=== PATIENT | male | born 1955 | race Caucasian/White ===

== ENCOUNTER 2021-04-24 14:31 | Inpatient (IN) ==
[2021-04-24] MEDS ORDERED: Ondansetron ODT 4 MG TAB.RAPDIS SL PRN (18:06)
[2021-04-24] MEDS ORDERED: Melatonin 3 MG TABLET PO PRN (18:06)
[2021-04-24] MEDS ORDERED: Naloxone 0.4 MG/ML INJ IVP PRN (18:06)
[2021-04-24] MEDS ORDERED: Mag Hydrox/Al Hydrox/Simeth 30 ML UDC PO PRN (18:06)
[2021-04-24] MEDS ORDERED: Furosemide 40 MG/4 ML VIAL IVP ONE (18:13)
[2021-04-24] MEDS ORDERED: D5% in Water 1,000 ML IVC PRN (18:27)
[2021-04-24] MEDS ORDERED: *HR* Dextrose 50 % in Water (Vial) 50 ML VIAL IVP PRN (18:27)
[2021-04-24] MEDS ORDERED: Dextrose Gel 15 GM/37.5 ML TUBE PO PRN ×2 (18:27)
[2021-04-24] MEDS: Acetaminophen 325 MG TABLET PO PRN (19:49)
[2021-04-25 01:56] LABS: Basophils # 0.1 K/mcL (0.0-0.2); Basophils % 0.3 %; Eosinophils # 0.1 K/mcL (0.0-0.6); Eosinophils % 0.3 %; Hemoglobin 13.9 g/dL (12.9-16.9); Immature Granulocytes % 0.5 % (0-4); Lymphocytes # 1.3 K/mcL (0.6-4.6); Lymphocytes % 7.5 %; Mean Corpuscular HGB Conc 33.1 g/dL (31.6-35.5); Mean Corpuscular Volume 90.7 fL (83.0-100.0); Mean Platelet Volume 9.9 fL (9.4-12.4); Monocytes # 1.3 K/mcL (0.0-1.3); Monocytes % 7.5 %; Neutrophils # 14.6 K/mcL (1.6-8.9); Platelet Count 194 K/mcL (140-400); Red Blood Count 4.63 M/mcL (4.19-5.50); Red Cell Distribution Width 12.4 % (11.5-14.5); Segmented Neutrophils % 83.9 %; White Blood Count 17.4 K/mcL (4.3-11.1)
[2021-04-25 02:05] LABS: INR 1.2; Prothrombin Time 13.3 Seconds (9.4-12.1)
[2021-04-25 02:19] LABS: BUN/Creatinine Ratio 20 (6-26); Blood Urea Nitrogen 18 mg/dL (8-23); Calcium 9.1 mg/dL (8.6-10.3); Carbon Dioxide 29 mEq/L (23-29); Chloride 93 mEq/L (98-107); Glucose 171 mg/dL (70-105); Osmolality,Calculated 290 (280-300); Potassium 3.4 mEq/L (3.5-5.1); Sodium 137 mEq/L (136-145); eGFR For African Americans > 60 (> 60); eGFR For Non-African Americans > 60 (> 60)
[2021-04-25] MEDS: Insulin LISPRO 300 UNITS/3 ML VIAL SUBQ SCH ×5 (03:12→21:12)
[2021-04-25] MEDS: Acetaminophen 325 MG TABLET PO PRN (03:14)
[2021-04-25] MEDS: *HR* Heparin 5,000 UNIT/ML VIAL SQ SCH ×2 (05:58→16:32)
[2021-04-25] MEDS: Aspirin 81 MG TAB.CHEW PO SCH (08:28)
[2021-04-25] MEDS ORDERED: *HR* FentaNYL (PF) 100 MCG/2 ML VIAL ONE (11:00)
[2021-04-25] MEDS ORDERED: 0.9 % Sodium Chloride 2,000 ML ONE (11:00)
[2021-04-25] MEDS ORDERED: Nitroglycerin 1,000 MCG/5 ML VIAL IV ONE (11:00)
[2021-04-25] MEDS ORDERED: *HR* Heparin 10,000 UNIT/10 ML VIAL ONE (11:00)
[2021-04-25] MEDS ORDERED: ISOVUE-370 200 ML INFUS..BTL ONE (11:00)
[2021-04-25] MEDS ORDERED: Heparin 1,000 UNITS/500 mL 500 ML ONE (11:00)
[2021-04-25] MEDS ORDERED: *HR* Midazolam HCl 2 MG/2 ML VIAL ONE ×2 (11:00→11:59)
[2021-04-25] MEDS ORDERED: *HR* Bivalirudin 250 MG VIAL IVC ONE (12:11)
[2021-04-25] MEDS: Spironolactone 12.5 MG TABLET PO SCH (13:46)
[2021-04-25 18:47] LABS: Adenovirus Not Detected (Not Detect); Bordetella Pertussis Not Detected (Not Detect); Chlamydophila pneumoniae Not Detected (Not Detect); Coronavirus 229E Not Detected (Not Detect); Coronavirus HKU1 Not Detected (Not Detect); Coronavirus NL63 Not Detected (Not Detect); Coronavirus OC43 Not Detected (Not Detect); Human Metapneumovirus Not Detected (Not Detect); Human Rhinovirus/Enterovirus Not Detected (Not Detect); Influenza A Subtype 2009 H1 Not Detected (Not Detect); Influenza B Not Detected (Not Detect); Mycoplasma pneumoniae Not Detected (Not Detect); Parainfluenza Virus 1 Not Detected (Not Detect); Parainfluenza Virus 2 Not Detected (Not Detect); Parainfluenza Virus 3 Not Detected (Not Detect); Parainfluenza Virus 4 Not Detected (Not Detect); Respiratory Syncytial Virus Not Detected (Not Detect); SARS-CoV-2 Not Detected (Not Detect)
[2021-04-25] MEDS: *HR* OxyCODONE Immed Rel 5 MG TABLET PO PRN (21:07)
[2021-04-26 01:29] LABS: Basophils # 0.1 K/mcL (0.0-0.2); Basophils % 0.3 %; Eosinophils % 0.2 %; Hematocrit 40.3 % (37.5-50.1); Hemoglobin 13.5 g/dL (12.9-16.9); Immature Granulocytes % 0.9 % (0-4); Lymphocytes # 1.5 K/mcL (0.6-4.6); Lymphocytes % 8.2 %; Mean Corpuscular HGB Conc 33.5 g/dL (31.6-35.5); Mean Corpuscular Hemoglobin 30.4 pg (28.0-33.3); Mean Corpuscular Volume 90.8 fL (83.0-100.0); Mean Platelet Volume 9.4 fL (9.4-12.4); Monocytes # 1.3 K/mcL (0.0-1.3); Monocytes % 7.2 %; Neutrophils # 15.3 K/mcL (1.6-8.9); Platelet Count 191 K/mcL (140-400); Red Blood Count 4.44 M/mcL (4.19-5.50); Red Cell Distribution Width 12.1 % (11.5-14.5); Segmented Neutrophils % 83.2 %; White Blood Count 18.4 K/mcL (4.3-11.1)
[2021-04-26 01:51] LABS: BUN/Creatinine Ratio 21 (6-26); Blood Urea Nitrogen 22 mg/dL (8-23); Calcium 9.1 mg/dL (8.6-10.3); Carbon Dioxide 29 mEq/L (23-29); Chloride 94 mEq/L (98-107); Glucose 155 mg/dL (70-105); Osmolality,Calculated 286 (280-300); Potassium 3.6 mEq/L (3.5-5.1); Sodium 135 mEq/L (136-145); eGFR For African Americans > 60 (> 60); eGFR For Non-African Americans > 60 (> 60)
[2021-04-26] MEDS: *HR* Heparin 5,000 UNIT/ML VIAL SQ SCH ×2 (05:35→17:34)
[2021-04-26 07:39] LABS: Bacteria,Urine Many per hpf (None-Few); Bilirubin,Urine Negative (Negative); Blood,Urine Moderate (Negative); Clarity,Urine Turbid (Clear); Color,Urine Yellow (Yellow); Glucose,Urine (UA) Normal (Normal); Ketones,Urine 10 mg/dL (Negative); Leukocyte Esterase,Urine Moderate (Negative); Nitrite,Urine Positive (Negative); PH,Urine 5.5 pH Units (5.0-8.0); Protein,Urine 100 mg/dL (Neg-Trace); RBC,Urine 0-3 per hpf (0-3); Specific Gravity,Urine > 1.030 (1.010-1.025); Urobilinogen,Urine Normal (Normal); WBC,Urine 50-100 per hpf (0-3)
[2021-04-26] MEDS: Insulin LISPRO 300 UNITS/3 ML VIAL SUBQ SCH ×4 (08:55→21:19)
[2021-04-26] MEDS: Aspirin 81 MG TAB.CHEW PO SCH (09:02)
[2021-04-26] MEDS: Spironolactone 12.5 MG TABLET PO SCH (09:03)
[2021-04-26] MEDS: FLUoxetine 20 MG CAPSULE PO SCH (09:03)
[2021-04-26] MEDS: Metoprolol XL (24 HR) Succ 25 MG TAB.ER.24H PO SCH (09:04)
[2021-04-26] MEDS ORDERED: Ondansetron 4 MG/2 ML VIAL IVP PRN (09:21)
[2021-04-26] MEDS: cefTRIAXone 1,000 MG in Water for inj. (sterile) 10 ML IVP SCH (10:10)
[2021-04-26] MEDS ORDERED: 0.9 % Sodium Chloride 1,000 ML IVC SCH (10:15)
[2021-04-26] MEDS: *HR* OxyCODONE Immed Rel 5 MG TABLET PO PRN ×2 (15:36→21:21)
[2021-04-27 03:11] LABS: Basophils # 0.1 K/mcL (0.0-0.2); Basophils % 0.5 %; Eosinophils # 0.3 K/mcL (0.0-0.6); Eosinophils % 2.5 %; Hematocrit 38.4 % (37.5-50.1); Hemoglobin 12.8 g/dL (12.9-16.9); Immature Granulocytes % 0.6 % (0-4); Lymphocytes # 1.2 K/mcL (0.6-4.6); Lymphocytes % 10.1 %; Mean Corpuscular HGB Conc 33.3 g/dL (31.6-35.5); Mean Corpuscular Hemoglobin 30.5 pg (28.0-33.3); Mean Corpuscular Volume 91.6 fL (83.0-100.0); Mean Platelet Volume 9.6 fL (9.4-12.4); Monocytes # 1.3 K/mcL (0.0-1.3); Monocytes % 10.7 %; Neutrophils # 8.9 K/mcL (1.6-8.9); Platelet Count 200 K/mcL (140-400); Red Blood Count 4.19 M/mcL (4.19-5.50); Red Cell Distribution Width 12.1 % (11.5-14.5); Segmented Neutrophils % 75.6 %; White Blood Count 11.7 K/mcL (4.3-11.1)
[2021-04-27 03:30] LABS: BUN/Creatinine Ratio 23 (6-26); Blood Urea Nitrogen 25 mg/dL (8-23); Calcium 8.9 mg/dL (8.6-10.3); Carbon Dioxide 33 mEq/L (23-29); Chloride 94 mEq/L (98-107); Glucose 144 mg/dL (70-105); Osmolality,Calculated 289 (280-300); Potassium 3.7 mEq/L (3.5-5.1); Sodium 136 mEq/L (136-145); eGFR For African Americans > 60 (> 60); eGFR For Non-African Americans > 60 (> 60)
[2021-04-27] MEDS: *HR* Heparin 5,000 UNIT/ML VIAL SQ SCH (05:56)
[2021-04-27] MEDS: *HR* OxyCODONE Immed Rel 5 MG TABLET PO PRN (05:58)
[2021-04-27 06:57] VITALS: BP 126/76
[2021-04-27] MEDS: cefTRIAXone 1,000 MG in Water for inj. (sterile) 10 ML IVP SCH (08:50)
[2021-04-27] MEDS: Metoprolol XL (24 HR) Succ 25 MG TAB.ER.24H PO SCH (08:50)
[2021-04-27] MEDS: Spironolactone 12.5 MG TABLET PO SCH (08:50)
[2021-04-27] MEDS: FLUoxetine 20 MG CAPSULE PO SCH (08:50)
[2021-04-27] MEDS: Aspirin 81 MG TAB.CHEW PO SCH (08:50)
[2021-04-27] MEDS: Insulin LISPRO 300 UNITS/3 ML VIAL SUBQ SCH (08:51)
== END 2021-04-27 11:45 | disposition home or self-care (01) | DRG 286 ==
LOC: 3BNU → SUATTDRO 16:55
PROVIDERS: ADMIT Family Medicine; ATTEND Family Medicine